=== PATIENT | female | born 1950 | race Caucasian/White ===

== ENCOUNTER → 2017-02-14 | Outpatient (CLI) | payer OTHER, BC | LOC: CIMAGING 12:12 | DX: Z12.31 Encounter for screening mammogram for malignant neoplasm of breast (principal) | CPT/HCPCS: G0202 ==

== ENCOUNTER → 2017-10-09 | Outpatient (CLI) | payer OTHER, BC | LOC: CIMAGING 08:08 → EDSTATUS 08:32 | PROVIDERS: ATTEND Physical Medicine & Rehabilitation | DX: M13.851 Other specified arthritis, right hip (principal); M13.852 Other specified arthritis, left hip | CPT/HCPCS: 73521-PO ==

== ENCOUNTER → 2017-11-21 | Outpatient (CLI) | payer OTHER, BC | LOC: FIMAGING 06:37 | PROVIDERS: ATTEND Physical Medicine & Rehabilitation | DX: M51.36 Other intervertebral disc degeneration, lumbar region (principal); M47.896 Other spondylosis, lumbar region; M43.16 Spondylolisthesis, lumbar region; M48.061 Spinal stenosis, lumbar region without neurogenic claudication; M99.73 Connective tissue and disc stenosis of intervertebral foramina of lumbar region ==

== ENCOUNTER → 2018-02-22 | Outpatient (CLI) | payer OTHER, BC | LOC: FIMAGING 10:08 | PROVIDERS: ATTEND Obstetrics & Gynecology | DX: Z12.31 Encounter for screening mammogram for malignant neoplasm of breast (principal) ==

== ENCOUNTER 2019-02-08 16:10 | Emergency (ER) | payer OTHER, BC ==
[2019-02-08] MEDS ORDERED: IBUPROFEN 200 MG TAB PO ONE (16:35)
--- NOTE | 2019-02-08 16:58 | EDPHY ---
HPI/HX/ROS/PE/MDM Narrative: CHIEF COMPLAINT: Fall, right rib pain HPI: The patient is a 68-year-old female with a history of thyroid disease. She is not on anticoagulants. She reports a mechanical fall just prior to arrival in which she tripped over a rug and landed on a wooden floor and possibly a chair. She denies loss of consciousness. She denies numbness, weakness or tingling. She complains primarily of tenderness to palpation and pain in her right upper anterior chest, particularly with inspiration or laughing. She denies shortness of breath. She also complains of pain to her left maxilla and TMJ. She is able to close her teeth but does not feel like she can fully open. She denies any neck pain. REVIEW OF SYSTEMS: Aside from elements discussed in the HPI, a comprehensive 10-point review of systems was reviewed and is negative. PMH: Thyroid disease. Otherwise unremarkable. SOCIAL HISTORY: Denies alcohol or drug abuse. PHYSICAL EXAM: General:Patient is alert, in no acute distress. ENT:Eyes are normal to inspection. ENT inspection normal. Tenderness to palpation is present over the left maxilla and left TMJ. No crepitus palpable. No ecchymosis. Neck: Normal inspection. Full range of motion. Respiratory:No respiratory distress. Breath sounds normal bilaterally. No ecchymosis is seen. Tenderness to palpation is present in the anterior upper right chest wall. No crepitus palpable. Cardiovascular: Regular rate and rhythm. Strong peripheral pulses. Normal cap refill. Abdomen:The abdomen is nontender to palpation. There are no peritoneal signs. There are normal bowel sounds. No right upper quadrant tenderness. Back: Normal to inspection. No tenderness to palpation. Skin: Normal color. No rash. Warm and dry. A skin tear is present on the right mid forearm. No suturable lacerations. Extremities: Normal appearance. Full range of motion. Neuro: Oriented x3. Normal motor function. Normal sensory function. MDM: This patient presents with fall causing left-sided facial and right-sided chest wall pain. Chest x-ray is negative for pneumothorax or rib fracture. Given the degree of tenderness in this area, however I think this is likely either a deep contusion or possibly a clinical rib fracture. There is no sternal tenderness to suggest sternal fracture. Regarding her face, CT is negative for obvious fracture. I asked Dr. Booker to take a close look at the TMJ area on the left side he thinks there is a possibility of very mild buckling. Certainly this is not something that would require surgical intervention. I did inform the patient there is a possibility of facial fracture. I strongly encouraged her to follow up with the primary physician for re-evaluation given her age and the fact that she sustained a significant fall. She is comfortable with this plan. - Data Points Imaging: Discussed imaging studies w/ call center operator Radiologist, I viewed and interpreted images myself Medications Given: Discontinued Medications Ibuprofen (Motrin) 600 mg PO EDNOW ONE Stop: 02/08/19 16:36 Last Admin: 02/08/19 16:47 Dose: 600 mg General Time Seen by Provider: 02/08/19 16:43 Initial Vital Signs: Initial Vital Signs Temperature (C) 36.4 C 02/08/19 16:17 Heart Rate 64 02/08/19 16:17 Respiratory Rate 18 02/08/19 16:17 Blood Pressure 141/83 H 02/08/19 16:17 O2 Sat (%) 100 02/08/19 16:17 O2 Delivery Mode Room Air Allergies/Adverse Reactions: No Known Allergies Allergy (Unverified 02/08/19 16:22) Home Medications: Medication Instructions Recorded Lexapro 02/08/19 Synthroid 02/08/19 Departure - Departure Disposition: Home, Routine, Self-Care Clinical Impression: Contusion of rib on right side, Skin tear of right upper extremity, Facial contusion Condition: Good Instructions: Fall Prevention (ED) Additional Instructions: Follow-up with your primary care physician within 72 hr for re-evaluation. Be sure to take a deep breath several times per day to try and prevent pneumonia. We recommend you take ibuprofen and Tylenol as directed around the clock for the next few days to help with pain. Return to the emergency department immediately for headache, vision changes, difficulty chewing, difficulty breathing, abdominal pain or other concerns. Referrals: Jason Velasquez MD [Primary Care Provider] - As per Instructions
[2019-02-08 18:21] VITALS: BP 138/70
== END 2019-02-08 18:19 | disposition home or self-care (01) ==
LOC: CED 16:10
DX: S20.211A Contusion of right front wall of thorax, initial encounter (principal); S50.811A Abrasion of right forearm, initial encounter; S00.83XA Contusion of other part of head, initial encounter; W01.0XXA Fall on same level from slipping, tripping and stumbling without subsequent striking against object, initial encounter
CPT/HCPCS: 70450-PO; 71101-PO; 99284-ER

== ENCOUNTER → 2019-02-27 | Outpatient (CLI) | payer OTHER, BC | LOC: FIMAGING 09:21 | PROVIDERS: ATTEND Obstetrics & Gynecology | DX: Z12.31 Encounter for screening mammogram for malignant neoplasm of breast (principal) ==

== ENCOUNTER → 2019-03-22 | Outpatient (CLI) | payer OTHER, BC | LOC: FIMAGING 09:47 ==